=== PATIENT | female | born 1935 | race Caucasian/White ===

== ENCOUNTER 2022-09-25 13:47 | Outpatient (CLI) | payer MEDICARE ==
[~2022-09-25] VITALS: Ht 157.5 cm; Wt 52.0 kg
[~2022-09-25 13:47] MED LIST: ASPIRIN E.C. 8181 MG PO; ATARAX50 MG PO; CEPHALEXIN500 M1 PO; CRESTOR20 MG PO; EXELON PAT4.6 MG/24 TD; MACROBID 1100 MG/CAP PO; MULTI VITAMINS1 TAB PO; PLAVIX 75MG TAB75 MG PO; PRESERVISIONLUT PO; PRINIVIL20 MG PO; VISION FORMULA1 EAC1 PO; VITAMIN D31000 I1 PO
[2022-09-25 14:09] VITALS: BP 126/66; PULSE 83; TEMP 98
--- NOTE | 2022-09-25 14:31 | NUR ---
PT WAS DISCHARGED AT APPROX 1425. SHE TOLERATED HER PROLIA INJXN WELL AND WAS FREE FROM COMPLAINTS OR CONCERNS AT TIME OF DISCHARGE. SHE LEFT THE HOSPITAL WITH SON. PT WAS NOT A VERY ACCURATE HISTORIAN AND POSESSED SOME DELAYED COMPREHENSION A RESULT OF TIA IN JANUARY. SON WAS ABLE TO ANSWER MOST MEDICAL QUESTIONS THAT THE PT COULD NOT. HER VS WERE WITHIN NORMAL LIMITS AND SHE AMBULATED WELL UPON DISCHARGE.
== END 2022-09-25 14:25 | disposition home or self-care (01) ==
LOC: EUO 13:47
DX: M81.0 Age-related osteoporosis without current pathological fracture (principal)
CPT/HCPCS: J0897

== ENCOUNTER 2023-03-30 14:45 | Outpatient (CLI) | payer MEDICARE ==
[~2023-03-30] VITALS: Ht 157.5 cm; Wt 55.7 kg
[~2023-03-30 14:45] MED LIST changes: -EXELON PAT4.6 MG/24 TD; +EXELON9.5 MG/24 TD
[2023-03-30 14:59] VITALS: BP 130/57; PULSE 64; TEMP 97.9
[2023-03-30] MEDS ORDERED: PROLIA60 MG/ML SQ (15:07)
[2023-03-30] MEDS ORDERED: TOPROL XL 25MG25 MG PO (15:07)
--- NOTE | 2023-03-30 15:17 | NUR ---
Pt tolerated prolia without issue. She and son exit dept.
== END 2023-03-30 15:18 | disposition home or self-care (01) ==
LOC: EUO 14:45
DX: M81.0 Age-related osteoporosis without current pathological fracture (principal)
CPT/HCPCS: J0897

== ENCOUNTER 2023-09-30 09:59 | Outpatient (CLI) | payer MEDICARE ==
[~2023-09-30] VITALS: Ht 157.5 cm; Wt 56.4 kg
[~2023-09-30 09:59] MED LIST changes: +PROLIA60 MG/ML SQ; +TOPROL XL 25MG25 MG PO
[2023-09-30 10:08] VITALS: BP 133/79; PULSE 70; TEMP 98
[2023-09-30] MEDS ORDERED: Denosumab 60 MG/ML SYRINGE SQ ONE (10:15)
--- NOTE | 2023-09-30 10:44 | NUR ---
pt tolerated injection well and ambulated to main lobby upon discharge. vs remained within normal limits. pt free from concerns and complaints.
== END 2023-09-30 10:45 | disposition home or self-care (01) ==
LOC: EUO 09:59
DX: M81.0 Age-related osteoporosis without current pathological fracture (principal)
CPT/HCPCS: J0897